=== PATIENT | female | born 1985 | race Caucasian/White ===

== ENCOUNTER 2017-05-03 16:09 | Emergency (ER) | payer BC ==
[~2017-05-03] VITALS: Ht 170.2 cm; Wt 99.5 kg
[~2017-05-03 16:09] MED LIST: VOLTAREN GEL 1%1 TU; ZYRTEC5 MG
[2017-05-03 16:11] VITALS: TEMP 97.5
[2017-05-03] MEDS ORDERED: PRENATAL MVI (16:16)
[2017-05-03] MEDS ORDERED: ZOFRAN ODT8 MG PO (17:24)
[2017-05-03 17:25] VITALS: BP 138/75; PULSE 92
[2017-05-03 17:34] LABS: CREATININE, serum 0.47 mg/dL (0.52-1.25); POTASSIUM 3.4 mmol/L (3.4-5.0)
== END 2017-05-03 20:00 | disposition home or self-care (01) ==
LOC: COL.ER 16:09
PROVIDERS: Emergency Medicine
DX: R11.2 Nausea with vomiting, unspecified (principal); R00.0 Tachycardia, unspecified
CPT/HCPCS: J2405; J2765; J7030

== ENCOUNTER 2017-07-05 08:14 | Outpatient (CLI) | payer BC ==
[~2017-07-05] VITALS: Ht 170.2 cm; Wt 103.6 kg
[~2017-07-05 08:14] MED LIST changes: +PRENATAL MVI; +ZOFRAN ODT8 MG PO
[2017-07-05 08:25] VITALS: BP 132/93; PULSE 90; TEMP 98.2
[2017-07-05 08:38] VITALS: BP 132/93; PULSE 90; TEMP 98.2
[2017-07-05 09:43] VITALS: BP 132/85; PULSE 85
== END 2017-07-05 09:47 | disposition home or self-care (01) ==
LOC: LDRO 08:14
DX: Z34.03 Encounter for supervision of normal first pregnancy, third trimester (principal); Z3A.37 37 weeks gestation of pregnancy

== ENCOUNTER 2017-07-06 07:21 | Inpatient (IN) | payer BC ==
[2017-07-06] VITALS (54 sets, daily range): BP systolic 116–168; BP diastolic 50–96; PULSE 81–139; TEMP 97.6–98.7
[~2017-07-06] VITALS: Ht 170.2 cm; Wt 103.6 kg
[2017-07-06 09:40] LABS: HEMATOCRIT 39.5 % (37.0-47.0); HEMOGLOBIN 13.5 g/dl (12.5-16.0); MEAN CELL VOLUME 88 fl (80.0-100.0); MEAN CORPUSCULAR HEMOGLOBIN 30 pg (27.0-31.0); MEAN CORPUSCULAR HGB CONC 34 g/dl (33.0-37.0); MEAN PLATELET VOLUME 11.4 fl (7.4-10.4); PLATELET COUNT 233 K/mm3 (130-400); RED BLOOD COUNT 4.49 M/mm3 (4.10-5.30); REDCELL DISTRIBUTION WIDTH-CV 13.9 % (11.5-14.5); WHITE BLOOD COUNT 9.8 K/mm3 (4.8-10.8)
[2017-07-06 09:43] LABS: PH 8 (5-8); SQUAMOUS EPITHELIAL 0-2 /hpf; URINE APPEARANCE Clear; URINE BACTERIA None Seen /hpf; URINE BILIRUBIN Negative (NEGATIVE); URINE BLOOD 2+ (NEGATIVE); URINE COLOR Straw; URINE GLUCOSE Negative (NEGATIVE); URINE KETONE Negative (NEGATIVE); URINE UROBILINOGEN Negative (NEGATIVE); URINE WBC 0-2 /hpf
[2017-07-06 09:48] LABS: ADJUSTED CALCIUM 9.4 mg/dL (8.4-10.2); ALBUMIN 3.5 gm/dL (3.5-5.0); BILIRUBIN,TOTAL 0.4 mg/dL (0.0-1.0); CREATININE, serum 0.52 mg/dL (0.52-1.25); POTASSIUM 3.8 mmol/L (3.4-5.0); TOTAL PROTEIN 6.7 gm/dL (6.4-8.2)
[2017-07-07 02:16] VITALS: BP 104/50; PULSE 104; TEMP 97.5
[2017-07-07 05:13] VITALS: BP 132/92; PULSE 99; TEMP 97.9
[2017-07-07 07:58] LABS: HEMATOCRIT 34.3 % (37.0-47.0); HEMOGLOBIN 11.6 g/dl (12.5-16.0)
[2017-07-07 08:20] VITALS: BP 142/84; PULSE 98; TEMP 97.4
[2017-07-07] MEDS ORDERED: IBU600 MG PO (08:55)
[2017-07-07 16:05] VITALS: BP 136/74; PULSE 108; TEMP 97.8
[2017-07-07 19:15] VITALS: BP 128/64; PULSE 94; TEMP 98.6
[2017-07-08 09:36] VITALS: BP 137/88; PULSE 90; TEMP 98.7
== END 2017-07-08 14:55 | disposition home or self-care (01) | DRG 775 ==
LOC: LDRO 07:21 → OB 09:06 → LDR 09:06 → OB 22:00
PROVIDERS: Obstetrics & Gynecology
PROC: 10D07Z6 Extraction of Products of Conception, Vacuum, Via Natural or Artificial Opening (ICD-10-PCS; principal; 2017-07-06)
PROC: 0W8NXZZ Division of Female Perineum, External Approach (ICD-10-PCS; 2017-07-06)
DX: O13.4 Gestational [pregnancy-induced] hypertension without significant proteinuria, complicating childbirth (principal); O76 Abnormality in fetal heart rate and rhythm complicating labor and delivery; Z3A.38 38 weeks gestation of pregnancy; Z37.0 Single live birth
CPT/HCPCS: J2400; J2590; J7120

== ENCOUNTER → 2018-11-21 | Outpatient (CLI) | payer BC ==
[~2018-11-21] MED LIST changes: +IBU600 MG PO
== END ==
LOC: COL.RAD 08:00
DX: R10.11 Right upper quadrant pain (principal)

== ENCOUNTER → 2019-04-20 | Outpatient (CLI) | payer BC ==
[2019-04-20 16:00] LABS: BASO # 0.1 (0.0-0.2); BASO % 0.6 % (0.0-2.0); EOS # 0.1 (0.0-0.7); EOS % 0.8 % (0-4.0); GRAN # 5.1 (1.4-6.5); GRAN % 58.5 % (42.2-75.2); HEMATOCRIT 42.4 % (37.0-47.0); LYMPH # 3.1 (1.2-3.4); MEAN CELL VOLUME 92 fl (80.0-100.0); MEAN CORPUSCULAR HEMOGLOBIN 30 pg (27.0-31.0); MEAN CORPUSCULAR HGB CONC 33 g/dl (33.0-37.0); MEAN PLATELET VOLUME 9.7 fl (7.4-10.4); MONO # 0.4 (0.1-0.6); MONO % 4.9 % (1.7-9.3); PLATELET COUNT 293 K/mm3 (130-400); RED BLOOD COUNT 4.63 M/mm3 (4.10-5.30); REDCELL DISTRIBUTION WIDTH-CV 12.7 % (11.5-14.5)
[2019-04-20 16:15] LABS: ALANINE AMINOTRANSFERASE 12 U/L (9-52); ALBUMIN 4.4 gm/dL (3.5-5.0); ALKALINE PHOSPHATASE 45 U/L (50-136); AMYLASE 79 U/L (30-110); ANION GAP 11 mmol/L (7-16); AST,SGOT 19 U/L (15-37); BILIRUBIN,TOTAL 0.3 mg/dL (0.0-1.0); BLOOD UREA NITROGEN 11 mg/dL (7-17); CALCIUM 9.4 mg/dL (8.4-10.2); CARBON DIOXIDE 27 mmol/L (22-30); CHLORIDE 101 mmol/L (98-107); CREATININE, serum 0.75 (0.52-1.25); GLUCOSE 105 mg/dL (74-106); LIPASE 69 U/L (23-300); POTASSIUM 4.1 mmol/L (3.4-5.0); SODIUM 140 mmol/L (137-145)
[2019-04-20 16:31] LABS: TROPONIN-I < 0.012 ng/mL (0.000-0.035)
== END ==
LOC: COL.RAD 15:36
PROVIDERS: Physician Assistant
DX: J45.909 Unspecified asthma, uncomplicated (principal); M54.9 Dorsalgia, unspecified; R10.9 Unspecified abdominal pain

== ENCOUNTER → 2020-05-24 | Outpatient (CLI) | payer BC | LOC: ZCOL.LAB 17:16 | DX: U07.1 COVID-19 (principal) ==

== ENCOUNTER → 2020-08-30 | Day surgery (SDC) | payer BC ==
[~2020-08-30] VITALS: Ht 170.2 cm; Wt 102.8 kg
[~2020-08-30] MED LIST changes: +APRI 0.15 MG-0.1 TAB PO; +D3-5050000 IU PO; +FLONASEALLERGY NS; +PRENATAL TABLET PO; +PRIL40 PO; +PROBIOTIC-10 370 MG PO; +VITAMIN B125000 MCG PO; +ZYRTEC 10MG10 MG PO
[2020-08-30 08:53] VITALS: BP 130/88; PULSE 76; TEMP 97.4
[2020-08-30 09:26] VITALS: BP 115/68; PULSE 74; TEMP 97.5
--- NOTE | 2020-08-30 09:26 | NUR ---
Pt returns from endo procedure via cart. Pt ambulates from cart to recliner with RN assist and without complications. Monitors on and alarms set. Call light within reach. Report received from JOSEPH Whiting. Pt's in room. Pt denies any pain or nausea. Pt requests a muffin and ice water. No other complications noticed or voiced.
[2020-08-30 09:30] VITALS: BP 125/92; PULSE 75
[2020-08-30 09:45] VITALS: BP 125/89; PULSE 102
--- NOTE | 2020-08-30 09:45 | NUR ---
Pt taking food and drink well. No other complications voiced.
[2020-08-30 10:00] VITALS: BP 127/90; PULSE 73
--- NOTE | 2020-08-30 10:20 | NUR ---
Discharge instructions given to pt and . All questions answered to their satisfaction. Handed to them are a thank you card, discharge instructions, diagnosis information, and a procedural photo sheet.
--- NOTE | 2020-08-30 10:28 | NUR ---
Pt transferred out of hospital via wheelchair and JOSEPH Gilmore, to private vehicle driven by .
[2020-08-30 10:46] VITALS: BP 123/80; PULSE 88
== END ==
LOC: SDCO 04-12 11:00
DX: K21.00 Gastro-esophageal reflux disease with esophagitis, without bleeding (principal); K22.70 Barrett's esophagus without dysplasia; Z88.1 Allergy status to other antibiotic agents; Z88.8 Allergy status to other drugs, medicaments and biological substances; F41.9 Anxiety disorder, unspecified; K29.70 Gastritis, unspecified, without bleeding; J45.909 Unspecified asthma, uncomplicated; G43.909 Migraine, unspecified, not intractable, without status migrainosus; Z20.828 Contact with and (suspected) exposure to other viral communicable diseases
CPT/HCPCS: J2704; J7030

== ENCOUNTER 2022-05-17 12:17 | Emergency (ER) | payer BC ==
[~2022-05-17] VITALS: Ht 170.2 cm; Wt 102.3 kg
[2022-05-17 12:28] VITALS: BP 148/98; TEMP 99.3
[2022-05-17] MEDS ORDERED: ACIDOPHILIS PO (12:34)
[2022-05-17] MEDS ORDERED: ZOLOFT 50MG50 MG PO (12:36)
[2022-05-17] MEDS ORDERED: CLARITIN 1010 MG/TAB PO (12:37)
[2022-05-17] MEDS ORDERED: PROAIR HFA0.09 MG/AC IH (12:37)
[2022-05-17 13:40] VITALS: PULSE 98
== END 2022-05-17 13:40 | disposition home or self-care (01) ==
LOC: COL.ER 12:17
DX: O20.0 Threatened abortion (principal); Z3A.18 18 weeks gestation of pregnancy; Z87.42 Personal history of other diseases of the female genital tract